=== PATIENT | male | born 1990 | race African-American/Black ===

== ENCOUNTER 2025-03-02 05:57 | Emergency (ER) | payer BC ==
[~2025-03-02] VITALS: Ht 170.2 cm; Wt 89.3 kg
[2025-03-02 06:20] VITALS: O2SAT 99
[2025-03-02] MEDS ORDERED: METH-653 MT (07:41)
[2025-03-02] MEDS ORDERED: IBUP-2029 MT (07:41)
[2025-03-02] MEDS ORDERED: LIDO700A30 TP (07:41)
[2025-03-02 08:05] VITALS: BP 126/88; PULSE 56; RESP 16; TEMP 37; O2SAT 99
== END 2025-03-02 08:06 | disposition home or self-care (01) ==
LOC: ER 05:57
DX: S33.5XXA Sprain of ligaments of lumbar spine, initial encounter (principal); M54.16 Radiculopathy, lumbar region; X58.XXXA Exposure to other specified factors, initial encounter; Y93.89 Activity, other specified; Y92.89 Other specified places as the place of occurrence of the external cause; Y99.8 Other external cause status
CPT/HCPCS: 99283